=== PATIENT | female | born 1955 | race Caucasian/White ===

== ENCOUNTER 2018-12-21 07:52 | Day surgery (SDC) | payer MEDICARE ==
[~2018-12-21 07:52] MED LIST: ADVIL200 MG OR; ATUSS DS OR; AVELOX400 MG OR; CEFTIN500 MG OR; CORTISPORIN OTI10 M1 OT; DULERA1 AE1 IN; LORTAB 7.5 OR; NO HOME MEDS; OMEPRAZOLE20 M1 PO; ROPINIROLE0.5 MG PO; ROPINIROLE2 MG PO; SPIRIVA RE1.25 MCG/A; TORADOL OR; VENTOLIN HFA IN; ZPAK OR; ZYRTEC10 MG OR
[2018-12-21 09:40] VITALS: BP 166/76
== END 2018-12-21 09:50 | disposition home or self-care (01) ==
LOC: ENDO 07:52
PROVIDERS: ATTEND Surgery
PROC: 0DBN8ZX Excision of Sigmoid Colon, Via Natural or Artificial Opening Endoscopic, Diagnostic (ICD-10-PCS; principal; 2018-12-21)
DX: Z12.11 Encounter for screening for malignant neoplasm of colon (principal); K63.5 Polyp of colon; K64.8 Other hemorrhoids; J44.9 Chronic obstructive pulmonary disease, unspecified; F17.210 Nicotine dependence, cigarettes, uncomplicated

== ENCOUNTER 2019-02-06 10:09 | Emergency (ER) | payer MEDICARE ==
[~2019-02-06] VITALS: Ht 170.2 cm; Wt 65.0 kg
[2019-02-06] MEDS ORDERED: AUGMENTIN500TAB PO (10:39)
[2019-02-06 11:15] VITALS: BP 162/55
== END 2019-02-06 11:15 | disposition home or self-care (01) ==
LOC: ED 10:09
DX: S61.256A Open bite of right little finger without damage to nail, initial encounter (principal); L03.011 Cellulitis of right finger; W55.01XA Bitten by cat, initial encounter; Y92.009 Unspecified place in unspecified non-institutional (private) residence as the place of occurrence of the external cause